=== PATIENT | female | born 1940 | race Caucasian/White ===

== ENCOUNTER 2024-03-08 18:54 | Emergency (ER) | payer MEDICARE, BC, MEDICAID ==
[~2024-03-08] VITALS: Ht 172.7 cm; Wt 73.5 kg
[2024-03-08] MEDS ORDERED: FUROSEMIDE 20 MG/2 ML VIAL ONE (19:32)
[2024-03-08] MEDS ORDERED: POTASSIUM CHLORIDE 20 MEQ TAB.PRT.SR ONE (19:32)
[2024-03-08] MEDS: FUROSEMIDE 20 MG/2 ML VIAL IV ONE (19:50)
[2024-03-08] MEDS: POTASSIUM CHLORIDE 20 MEQ TAB.PRT.SR PO ONE (19:50)
[2024-03-08 20:10] LABS: EOSINOPHILS # (AUTO) 0.4 K/uL (0.0-0.7); EOSINOPHILS % (AUTO) 5.7 % (0.0-7.0); HEMATOCRIT 48.1 % (31.2-41.9); HEMOGLOBIN 16.5 g/dL (10.9-14.3); LYMPHOCYTES # (AUTO) 0.9 K/uL (0.8-4.8); LYMPHOCYTES % (AUTO) 12.4 % (20.5-51.5); MEAN CORPUSCULAR HEMOGLOBIN 31.9 uug (24.7-32.8); MEAN CORPUSCULAR HGB CONC 34 g/dL (32.3-35.6); MONOCYTES # (AUTO) 0.2 K/uL (0.1-1.30); MONOCYTES % (AUTO) 2.5 % (0.0-11.0); NEUTROPHILS # (AUTO) 5.8 K/uL (1.8-8.9); NEUTROPHILS % (AUTO) 79.4 % (38.5-71.5); PLATELET COUNT (AUTO) 175 K/uL (179-408); RED BLOOD CELL COUNT(AUTO) 5.17 MIL/uL (3.63-4.92); RED CELL DISTRIBUTION WIDTH 13.5 % (12.3-17.7); WHITE BLOOD COUNT (AUTO) 7.3 K/uL (3.8-11.8)
[2024-03-08 20:11] LABS: DIFFERENTIAL COMMENT 1
[2024-03-08 20:16] LABS: CALCIUM 9.7 mg/dL (8.5-10.1); CARBON DIOXIDE 29 mmol/L (21-32); CHLORIDE 105 mmol/L (98-107); CREATININE 0.8 mg/dL (0.6-1.3); GLUCOSE 113 mg/dL (74-106); POTASSIUM 4.4 mmol/L (3.5-5.1); SODIUM SERUM 143 mmol/L (136-145); UREA NITROGEN, BLOOD 16 mg/dL (7-18)
[2024-03-08 20:29] LABS: ALANINE AMINOTRANSFERASE 29 U/L (14-59); ALBUMIN 3.8 g/dL (3.4-5.0); ALKALINE PHOSPHATASE 98 U/L (50-136); ASPARTATE AMINOTRANSFERASE 17 U/L (15-37); BILIRUBIN,DIRECT 0.1 mg/dL (0.0-0.2); BILIRUBIN,TOTAL 0.7 mg/dL (0.2-1.0); NT-PRO BNP 704 pg/mL (0-125); TOTAL PROTEIN, SERUM 8.1 g/dL (6.4-8.2)
[2024-03-08 21:28] VITALS: BP 121/83; TEMP 98.7; O2SAT 95
== END 2024-03-08 21:15 | disposition home or self-care (01) ==
LOC: ER 18:57
DX: Z13.9 Encounter for screening, unspecified (principal); E87.70 Fluid overload, unspecified; R06.02 Shortness of breath
CPT/HCPCS: 99285; 96374; 71045; 80076; 80048; 83880; 85025; 85730; 84484; 36415; 93005; J1940; A4606; A4663